=== PATIENT | female | born 1985 | race Caucasian/White ===

== ENCOUNTER 2022-08-16 13:04 | Emergency (ER) | payer SELFPAY ==
[2022-08-16] MEDS ORDERED: Cyclobenzaprine 10 MG TAB ONE (13:27)
[2022-08-16] MEDS ORDERED: Ketorolac Tromethamine 30 MG/ML VIAL ONE (13:27)
== END 2022-08-16 13:49 | disposition home or self-care (01) ==
LOC: ERS 13:04
DX: M62.830 Muscle spasm of back (principal); E11.9 Type 2 diabetes mellitus without complications; E78.00 Pure hypercholesterolemia, unspecified; I10 Essential (primary) hypertension; F17.210 Nicotine dependence, cigarettes, uncomplicated
CPT/HCPCS: 96372; J1885

== ENCOUNTER 2023-04-18 16:53 | Emergency (ER) | payer OTHER ==
[2023-04-18] MEDS ORDERED: diphenhydrAMINE 25 MG CAP ONE (17:25)
[2023-04-18] MEDS ORDERED: Famotidine 20 MG TAB ONE (17:25)
[2023-04-18] MEDS ORDERED: predniSONE 20 MG TAB ONE (17:25)
== END 2023-04-18 18:10 | disposition home or self-care (01) ==
LOC: ERS 16:53
DX: T63.461A Toxic effect of venom of wasps, accidental (unintentional), initial encounter (principal); E11.9 Type 2 diabetes mellitus without complications; E78.00 Pure hypercholesterolemia, unspecified; I10 Essential (primary) hypertension; F17.210 Nicotine dependence, cigarettes, uncomplicated; Z79.4 Long term (current) use of insulin
CPT/HCPCS: 99283; J7512

== ENCOUNTER 2023-05-03 12:58 | Emergency (ER) | payer OTHER ==
[2023-05-03] MEDS ORDERED: Aspirin Chewable 81 MG TAB ONE (13:35)
[2023-05-03 14:11] LABS: #Neutrophils 7.9 thou/uL (1.40-6.50); %Basophils 0.5 % (0.0-1.0); %Eosinophils 1.1 % (0.0-10.0); %Monocytes 4.6 % (0.0-10.0); %Neutrophils 66.4 % (42.0-75.0); Hematocrit 41.6 % (36.0-47.0); Hemoglobin 13.8 g/dL (12.0-16.0); Mean Corpuscular HGB CONC 33.2 g/dL (32.0-36.0); Mean Corpuscular Hemoglobin 31.1 pg (27.0-31.0); Mean Corpuscular Volume 93.7 fl (78.0-98.0); Mean Platelet Volume 9.1 fL (7.4-10.4); Platelet Count 372 10x3/uL (130-400); RBC Distribution Width 12.5 % (11.5-14.5); Red Blood Cell (RBC) Count 4.44 mill/uL (4.20-5.40); White Blood Cell (WBC) Count 11.8 10x3/uL (4.8-10.8)
[2023-05-03 14:12] LABS: #Basophils 0.1 thou/uL (0.0-0.2); #Eosinphils 0.1 thou/uL (0.0-0.7); #Monocytes 0.5 thou/uL (0.11-0.59)
[2023-05-03 14:27] LABS: BHCG - Serum Negative (NEGATIVE); Pregs Control Background? CLEAR/WHITE (CLR/WHITE); Pregs Control Bar Appear? YES (CONTROL BAR)
[2023-05-03 14:33] LABS: ALT (SGPT) 19 U/L (8-55); AST (SGOT) 16 U/L (5-34); Albumin 3.8 g/dL (3.5-5.0); Alkaline Phosphatase 39 U/L (40-110); Anion Gap 11 mmol/L (10-20); BUN (Urea Nitrogen) 15 mg/dL (7.0-18.7); Bilirubin, Total 0.3 mg/dL (0.2-1.2); Calc. Creatinine Clearance 0 mL/min (70-130); Carbon Dioxide 26 mmol/L (22-29); Chloride 102 mmol/L (98-107); Estimated GFR 100; Globulin 2.8 g/dL (2.4-3.5); Lipase 27 U/L (8-78); Potassium 4.1 mmol/L (3.5-5.1); Protein, Total 6.6 g/dL (6.0-8.3); Sodium 135 mmol/L (136-145)
[2023-05-03 14:36] LABS: Troponin I Less than 0.010 ng/mL (< 0.028)
[2023-05-03 14:38] LABS: Glucose 403 mg/dL (70-105)
== END 2023-05-03 16:18 | disposition home or self-care (01) ==
LOC: ERS 12:58
DX: R07.9 Chest pain, unspecified (principal); E11.9 Type 2 diabetes mellitus without complications; E78.00 Pure hypercholesterolemia, unspecified; I10 Essential (primary) hypertension; F17.210 Nicotine dependence, cigarettes, uncomplicated; Z79.4 Long term (current) use of insulin; Z79.899 Other long term (current) drug therapy
CPT/HCPCS: 36415; 71045; 71275; 80053; 83690; 83880; 84484; 84703; 85025; 93005; 96360

== ENCOUNTER 2023-05-08 02:11 | Emergency (ER) | payer OTHER ==
[2023-05-08] MEDS ORDERED: Ketorolac Tromethamine 30 MG/ML VIAL ONE (03:12)
[2023-05-08 04:14] LABS: BHCG - Serum Negative (NEGATIVE); Pregs Control Background? CLEAR/WHITE (CLR/WHITE); Pregs Control Bar Appear? YES (CONTROL BAR)
[2023-05-08] MEDS ORDERED: Morphine 2 MG/ML VIAL ONE ×2 (06:04)
== END 2023-05-08 06:42 | disposition home or self-care (01) ==
LOC: ERS 02:11
DX: M54.9 Dorsalgia, unspecified (principal); E11.9 Type 2 diabetes mellitus without complications; E78.00 Pure hypercholesterolemia, unspecified; I10 Essential (primary) hypertension; F17.210 Nicotine dependence, cigarettes, uncomplicated; Z79.4 Long term (current) use of insulin; Z79.899 Other long term (current) drug therapy
CPT/HCPCS: 36415; 70450; 72125; 72128; 72131; 84703; 96372; J1885; J2272

== ENCOUNTER 2023-05-12 00:20 | Emergency (ER) | payer OTHER ==
[2023-05-12 01:16] LABS: Bacteria/HPF None Seen HPF (None Seen); Bilirubin Negative (Negative); Blood, Urine Negative (Negative); CAUTI Indications for Culture Alt mental st,lethar; Clarity Clear (Clear); Glucose, Urine (Dipstick) Greater than 1000 mg/dL (Negative); Ketone, Urine Negative (Negative); Leukocyte Negative Leu/uL (Negative); Nitrite Negative (Negative); Protein, Urine (Dipstick) Negative (Neg-Trace); RBC/HPF 0-3 HPF (0-3); Specific Gravity, Urine 1.039 (1.002-1.036); Urobilinogen Normal mg/dL (Less than 2); WBC/HPF 0-3 HPF (0-3)
[2023-05-12 01:21] LABS: Urine Culture Reflex No No
[2023-05-12 01:25] LABS: Hematocrit 40.7 % (36.0-47.0); Hemoglobin 13.6 g/dL (12.0-16.0); Mean Corpuscular HGB CONC 33.4 g/dL (32.0-36.0); Mean Corpuscular Hemoglobin 31.7 pg (27.0-31.0); Mean Corpuscular Volume 94.9 fl (78.0-98.0); Mean Platelet Volume 9.3 fL (7.4-10.4); Platelet Count 353 10x3/uL (130-400); RBC Distribution Width 12.4 % (11.5-14.5); Red Blood Cell (RBC) Count 4.29 mill/uL (4.20-5.40); White Blood Cell (WBC) Count 14.9 10x3/uL (4.8-10.8)
[2023-05-12 01:27] LABS: Delete Auto Diff?? YES; Manual Diff?? YES
[2023-05-12 01:51] LABS: ALT (SGPT) 14 U/L (8-55); AST (SGOT) 9 U/L (5-34); Albumin 3.6 g/dL (3.5-5.0); Alkaline Phosphatase 36 U/L (40-110); Anion Gap 13 mmol/L (10-20); BUN (Urea Nitrogen) 12 mg/dL (7.0-18.7); Band 1 % (5-11); Bilirubin, Total 0.2 mg/dL (0.2-1.2); Calc. Creatinine Clearance 0 mL/min (70-130); Calcium 8.9 mg/dL (7.8-10.44); Carbon Dioxide 23 mmol/L (22-29); CellaVision Operator ID lab.abc; Chloride 103 mmol/L (98-107); Estimated GFR 100; Globulin 2.4 g/dL (2.4-3.5); Glucose 324 mg/dL (70-105); Lipase 17 U/L (8-78); Lymphocytes 34 % (21-51); Monocytes 1 % (0-10); Neutrophil 64 % (42-75); Platelet Adequacy Comment Platelets Normal; Potassium 3.9 mmol/L (3.5-5.1); RBC Morphology Within Normal Limits; Sodium 135 mmol/L (136-145); Total Cell Count 100
[2023-05-12 01:52] LABS: Troponin I Less than 0.010 ng/mL (< 0.028)
[2023-05-12 03:14] LABS: Actual Bicarbonate (HCO3v) 22.6 mEq/L (22-28); Base Excess -3.2 mEq/L (-2.0 to +3.0); Calcium, Ionized (venous) 1.14 mmol/L (1.16-1.32); Chloride (VBG) 102 mmol/L (98-106); Hematocrit-VBG 43 % (36.0-47.0); Hemoglobin (Hb) 14.7 g/dL (11.7-15.5); Potassium (VBG) 3.89 mmol/L (3.70-5.30); Sodium 135.9 mmol/L (133-146); pH (venous) 7.335 (7.32-7.43)
[2023-05-12 05:26] LABS: Lactic Acid 1.8 mmol/L (0.5-2.2)
== END 2023-05-12 06:05 | disposition home or self-care (01) ==
LOC: ERS 00:20
DX: E11.65 Type 2 diabetes mellitus with hyperglycemia (principal); E86.0 Dehydration; E78.00 Pure hypercholesterolemia, unspecified; I10 Essential (primary) hypertension; F17.210 Nicotine dependence, cigarettes, uncomplicated; Z79.4 Long term (current) use of insulin; Z79.899 Other long term (current) drug therapy
CPT/HCPCS: 36415; 36416; 80053; 81001; 82010; 82805; 83605; 83690; 84484; 85025; 93005; 96360; 96361

== ENCOUNTER 2023-05-16 03:18 | Emergency (ER) | payer OTHER ==
[2023-05-16 03:52] LABS: Hematocrit 38.3 % (36.0-47.0); Mean Corpuscular HGB CONC 33.9 g/dL (32.0-36.0); Mean Corpuscular Hemoglobin 31.5 pg (27.0-31.0); Mean Corpuscular Volume 92.7 fl (78.0-98.0); Mean Platelet Volume 9.2 fL (7.4-10.4); Platelet Count 325 10x3/uL (130-400); RBC Distribution Width 12.2 % (11.5-14.5); Red Blood Cell (RBC) Count 4.13 mill/uL (4.20-5.40); White Blood Cell (WBC) Count 13.3 10x3/uL (4.8-10.8)
[2023-05-16 04:09] LABS: Delete Auto Diff?? YES; Manual Diff?? YES
[2023-05-16 04:15] LABS: ALT (SGPT) 16 U/L (8-55); AST (SGOT) 16 U/L (5-34); Albumin 3.7 g/dL (3.5-5.0); Alkaline Phosphatase 31 U/L (40-110); Anion Gap 12 mmol/L (10-20); BUN (Urea Nitrogen) 14 mg/dL (7.0-18.7); Bilirubin, Total 0.2 mg/dL (0.2-1.2); Calc. Creatinine Clearance 0 mL/min (70-130); Calcium 8.8 mg/dL (7.8-10.44); Carbon Dioxide 24 mmol/L (22-29); Chloride 103 mmol/L (98-107); Estimated GFR 106; Globulin 2.5 g/dL (2.4-3.5); Glucose 227 mg/dL (70-105); Lipase 22 U/L (8-78); Magnesium 1.7 mg/dL (1.6-2.6); Potassium 4.2 mmol/L (3.5-5.1); Protein, Total 6.2 g/dL (6.0-8.3); Sodium 135 mmol/L (136-145)
[2023-05-16] MEDS ORDERED: Morphine 4 MG/ML VIAL ONE (04:26)
[2023-05-16] MEDS ORDERED: Ondansetron PF 4 MG/2 ML Vial ONE (04:26)
[2023-05-16 04:46] LABS: BHCG - Serum Negative (NEGATIVE); Pregs Control Background? CLEAR/WHITE (CLR/WHITE); Pregs Control Bar Appear? YES (CONTROL BAR)
[2023-05-16 05:00] LABS: Band 1 % (5-11); CellaVision Operator ID lab.abc; Eosinophils 2 % (0-10); Lymphocytes 32 % (21-51); Metamyelocyte 1 % (0-0); Monocytes 7 % (0-10); Neutrophil 54 % (42-75); Platelet Adequacy Comment Platelets Normal; RBC Morphology Within Normal Limits; Reactive Lymphocytes 3 % (0-10); Smudge Cells 17.8 %; Total Cell Count 101
[2023-05-16 08:59] LABS: Bacteria/HPF None Seen HPF (None Seen); Bilirubin Negative (Negative); Blood, Urine Negative (Negative); CAUTI Indications for Culture Dysuria,urgency,freq; Clarity Clear (Clear); Glucose, Urine (Dipstick) >=1000 mg/dL (Negative); Ketone, Urine Negative (Negative); Leukocyte Negative Leu/uL (Negative); Nitrite Negative (Negative); Protein, Urine (Dipstick) Negative (Neg-Trace); RBC/HPF 0-3 HPF (0-3); Specific Gravity, Urine 1.044 (1.002-1.036); Urobilinogen Normal mg/dL (Less than 2); WBC/HPF 0-3 HPF (0-3); pH, Urine 5.5 (5.0-9.0)
[2023-05-16 09:02] LABS: Urine Culture Reflex No No
[2023-05-16] MEDS ORDERED: Iopamidol 370 76% 100 ML VIAL ONE (10:26)
== END 2023-05-16 10:44 | disposition home or self-care (01) ==
LOC: ERS 03:18
DX: R10.33 Periumbilical pain (principal); R11.2 Nausea with vomiting, unspecified; E11.9 Type 2 diabetes mellitus without complications; E78.00 Pure hypercholesterolemia, unspecified; I10 Essential (primary) hypertension; F17.210 Nicotine dependence, cigarettes, uncomplicated; Z79.4 Long term (current) use of insulin; Z79.899 Other long term (current) drug therapy
CPT/HCPCS: 36415; 74177; 80053; 81001; 83690; 83735; 84703; 85025; 96361; 96374; 96375; J2270; J2405; Q9967

== ENCOUNTER 2023-06-12 14:44 | Emergency (ER) | payer OTHER | END 2023-06-12 17:15 | disposition home or self-care (01) | LOC: ERS 14:44 | DX: M25.571 Pain in right ankle and joints of right foot (principal); L03.311 Cellulitis of abdominal wall; E11.9 Type 2 diabetes mellitus without complications; E78.00 Pure hypercholesterolemia, unspecified; I10 Essential (primary) hypertension; F17.210 Nicotine dependence, cigarettes, uncomplicated ==

== ENCOUNTER 2023-06-29 12:52 | Emergency (ER) | payer OTHER ==
[2023-06-29] MEDS ORDERED: Ketorolac Tromethamine 30 MG/ML VIAL ONE ×2 (14:20→14:37)
== END 2023-06-29 14:23 | disposition left against medical advice (07) ==
LOC: ERS 12:52
DX: M25.552 Pain in left hip (principal); F17.210 Nicotine dependence, cigarettes, uncomplicated; E11.9 Type 2 diabetes mellitus without complications; Z53.21 Procedure and treatment not carried out due to patient leaving prior to being seen by health care provider; I10 Essential (primary) hypertension
CPT/HCPCS: 96372; J1885

== ENCOUNTER 2024-05-31 02:55 | Observation (INO) | payer OTHER, SELFPAY ==
[2024-05-31] MEDS ORDERED: Ondansetron ODT 4 MG TAB ONE (03:13)
[2024-05-31 03:17] LABS: Bilirubin Negative (Negative); Blood, Urine Negative (Negative); CAUTI Indications for Culture Dysuria,urgency,freq; Clarity Turbid (Clear); Glucose, Urine (Dipstick) Greater than 1000 mg/dL (Negative); Ketone, Urine Negative (Negative); Leukocyte Negative Leu/uL (Negative); Nitrite Negative (Negative); Protein, Urine (Dipstick) Negative (Neg-Trace); RBC/HPF 0-3 HPF (0-3); Specific Gravity, Urine 1.006 (1.002-1.036); Urobilinogen Normal mg/dL (Less than 2); WBC/HPF 0-3 HPF (0-3)
[2024-05-31 03:18] LABS: Bacteria/HPF 1+ HPF (None Seen)
[2024-05-31 03:19] LABS: Urine Culture Reflex No No
[2024-05-31] MEDS ORDERED: Magnesium 2 GM/50 ML BAG (IN WATER) ONE (03:46)
[2024-05-31 03:57] LABS: Hematocrit 35.3 % (36.0-47.0); Hemoglobin 12.1 g/dL (12.0-16.0); Mean Corpuscular HGB CONC 34.3 g/dL (32.0-36.0); Mean Corpuscular Hemoglobin 28.3 pg (27.0-31.0); Mean Corpuscular Volume 82.7 fL (78.0-98.0); Platelet Count 404 10x3/uL (130-400); RBC Distribution Width 13.8 % (11.5-14.5); Red Blood Cell (RBC) Count 4.27 mill/uL (4.20-5.40)
[2024-05-31 04:13] LABS: BHCG - Serum Negative (NEGATIVE); Pregs Control Background? CLEAR/WHITE (CLR/WHITE); Pregs Control Bar Appear? YES (CONTROL BAR)
[2024-05-31 04:16] LABS: ALT (SGPT) 25 U/L (8-55); AST (SGOT) 23 U/L (5-34); Albumin 4.1 g/dL (3.5-5.0); Alkaline Phosphatase 44 U/L (40-110); Anion Gap 17 mmol/L (10-20); BUN (Urea Nitrogen) 6 mg/dL (7.0-18.7); Bilirubin, Total 0.4 mg/dL (0.2-1.2); Calc. Creatinine Clearance 0 mL/min (70-130); Calcium 9.2 mg/dL (7.8-10.44); Carbon Dioxide 24 mmol/L (22-29); Chloride 83 mmol/L (98-107); Estimated GFR 91; Globulin 3.5 g/dL (2.4-3.5); Glucose 271 mg/dL (70-105); Magnesium 1.6 mg/dL (1.6-2.6); Potassium 3.3 mmol/L (3.5-5.1); Protein, Total 7.6 g/dL (6.0-8.3); Sodium 121 mmol/L (136-145)
[2024-05-31 04:17] LABS: Troponin I Less than 0.010 ng/mL (< 0.028)
[2024-05-31] MEDS ORDERED: Potassium Chloride 20 MEQ TAB ONE (04:38)
[2024-05-31 04:44] LABS: Lymphocytes 29 % (21-51); Macrocytosis SLIGHT = 6-15 cells HPF (0-5); Monocytes 1 % (0-10); Neutrophil 70 % (42-75); Ovalocytes SLIGHT = 2-5 cells HPF (0-1); Platelet Adequacy Comment Platelets Normal; Polychromasia SLIGHT = 2-3 cells HPF (0-2); Tear Drops SLIGHT = 2-5 cells HPF (0-1)
[2024-05-31 05:24] LABS: Creatinine, Urine 52.96 mg/dL (47-110); Sodium, Urine Less than 20 mmol/L (Not Available)
[2024-05-31 05:29] LABS: Hemoglobin A1c 9.1 % (4.0-6.0)
[2024-05-31 07:15] VITALS: BMI 46.5
[2024-05-31] MEDS ORDERED: Dextrose 50% Abboject 50 ML SYRINGE SLOW IVP PRN (07:28)
[2024-05-31] MEDS ORDERED: Dextrose 5% in Water 1,000 ML IV PRN (07:28)
[2024-05-31] MEDS ORDERED: Acetaminophen 325 MG TAB PO PRN (07:28)
[2024-05-31] MEDS ORDERED: Glucagon 1 MG/ML KIT IM PRN (07:28)
[2024-05-31] MEDS ORDERED: Metoclopramide HCl 10 MG (2 mL) VIAL IVP PRN (07:36)
[2024-05-31 08:56] LABS: Anion Gap 15 mmol/L (10-20); BUN (Urea Nitrogen) 5 mg/dL (7.0-18.7); Calc. Creatinine Clearance 223 mL/min (70-130); Calcium 8.8 mg/dL (7.8-10.44); Carbon Dioxide 27 mmol/L (22-29); Chloride 89 mmol/L (98-107); Estimated GFR 113; Glucose 209 mg/dL (70-105); Sodium 127 mmol/L (136-145)
[2024-05-31] MEDS: Gabapentin 300 MG CAP PO SCH (09:03)
[2024-05-31] MEDS: Insulin Glargine 30 UNITS/0.3 ML VIAL SC SCH (09:03)
[2024-05-31] MEDS: Nicotine 21 MG PATCH TD SCH (09:06)
[2024-05-31] MEDS: Sodium Chloride 0.9% 1,000 ML IV SCH ×3 (09:07→20:03)
[2024-05-31 09:20] LABS: Magnesium 1.7 mg/dL (1.6-2.6); Phosphorus 2.7 mg/dL (2.3-4.7)
[2024-05-31] MEDS: Insulin Lispro 100 UNIT/ML 10 ML VIAL SC PRN (11:43)
[2024-05-31 15:00] VITALS: BMI 46.5
[2024-05-31] MEDS: Magnesium 2 GM/50 ML(in water) 2 GM in Premix 1 BAG IVPB SCH (16:36)
[2024-05-31 16:41] LABS: Anion Gap 14 mmol/L (10-20); BUN (Urea Nitrogen) 6 mg/dL (7.0-18.7); Calc. Creatinine Clearance 197 mL/min (70-130); Calcium 9.1 mg/dL (7.8-10.44); Carbon Dioxide 28 mmol/L (22-29); Chloride 93 mmol/L (98-107); Estimated GFR 98; Glucose 216 mg/dL (70-105); Sodium 131 mmol/L (136-145)
[2024-05-31] MEDS: Atorvastatin Calcium 20 MG TAB PO SCH (20:04)
[2024-05-31 21:39] LABS: Anion Gap 17 mmol/L (10-20); BUN (Urea Nitrogen) 7 mg/dL (7.0-18.7); Calc. Creatinine Clearance 154 mL/min (70-130); Calcium 9.1 mg/dL (7.8-10.44); Carbon Dioxide 28 mmol/L (22-29); Chloride 93 mmol/L (98-107); Estimated GFR 73; Glucose 287 mg/dL (70-105); Potassium 4.5 mmol/L (3.5-5.1); Sodium 133 mmol/L (136-145)
[2024-05-31] MEDS: Sodium Chloride 0.45% 1,000 ML IV SCH (21:59)
[2024-06-01 06:11] LABS: #Basophils 0.07 10x3/uL (0.0-0.2); %Basophils 0.8 % (0.0-1.0); %Eosinophils 3.2 % (0.0-10.0); %Lymphocytes 40.7 % (21.0-51.0); Hematocrit 34.1 % (36.0-47.0); Hemoglobin 11.1 g/dL (12.0-16.0); Mean Corpuscular HGB CONC 32.6 g/dL (32.0-36.0); Mean Corpuscular Hemoglobin 28.5 pg (27.0-31.0); Mean Corpuscular Volume 87.4 fL (78.0-98.0); Mean Platelet Volume 9.2 fL (7.4-10.4); Platelet Count 396 10x3/uL (130-400); RBC Distribution Width 14.5 % (11.5-14.5)
[2024-06-01 06:21] LABS: Anion Gap 13 mmol/L (10-20); BUN (Urea Nitrogen) 7 mg/dL (7.0-18.7); Calc. Creatinine Clearance 216 mL/min (70-130); Calcium 8.6 mg/dL (7.8-10.44); Carbon Dioxide 27 mmol/L (22-29); Chloride 98 mmol/L (98-107); Estimated GFR 109; Glucose 203 mg/dL (70-105); Potassium 4.1 mmol/L (3.5-5.1); Sodium 134 mmol/L (136-145)
[2024-06-01 08:08] VITALS: BP 99/65; TEMP 98.1
== END 2024-06-01 15:10 | disposition home or self-care (01) ==
LOC: ERS 02:55 → T4-A 05:47
PROVIDERS: ADMIT Family Medicine; ATTEND Student in an Organized Health Care Education/Training Program
DX: E11.65 Type 2 diabetes mellitus with hyperglycemia (principal); E87.6 Hypokalemia; E87.1 Hypo-osmolality and hyponatremia; R42 Dizziness and giddiness; I10 Essential (primary) hypertension; E78.5 Hyperlipidemia, unspecified; E66.01 Morbid (severe) obesity due to excess calories; Z79.4 Long term (current) use of insulin; Z79.899 Other long term (current) drug therapy
CPT/HCPCS: 36415; 36416; 71045; 80048; 80053; 81001; 82570; 83036; 83735; 83930; 83935; 84100; 84300; 84443; 84484; 84560; 84703; 85025; 93005; 96374; 96376; G0378; J1815; J3475; J7030; Q0162